=== PATIENT | female | born 1985 | race African-American/Black ===

== ENCOUNTER 2017-01-21 21:27 | Emergency (ER) | payer MEDICAID | END 2017-01-21 22:12 | disposition left against medical advice (07) | LOC: D.ER 21:27 | DX: Z02.9 Encounter for administrative examinations, unspecified (principal) ==

== ENCOUNTER 2017-01-21 22:27 | Emergency (ER) | payer MEDICAID ==
[2017-01-21 23:02] LABS: HCG URINE NEGATIVE (NEGATIVE)
== END 2017-01-22 00:47 | disposition home or self-care (01) ==
LOC: D.ER 22:27
PROVIDERS: Emergency Medicine
DX: N61.0 Mastitis without abscess (principal); E03.9 Hypothyroidism, unspecified; F17.200 Nicotine dependence, unspecified, uncomplicated

== ENCOUNTER 2018-10-12 14:55 | Inpatient (IN) | payer MEDICAID ==
[~2018-10-12] VITALS: Ht 165.1 cm; Wt 98.4 kg
[2018-10-12] MEDS ORDERED: ZOVIRAX200 MG PO (15:03)
[2018-10-12 15:24] LABS: BASOPHILS 0.2 % (0-2); EOSINOPHILS 6.8 % (0-7); HEMATOCRIT 33.6 % (36.0-48.0); HEMOGLOBIN 11.6 g/dL (12-16); IMMATURE GRANULOCYTES 0.2 % (0-5); LYMPHOCYTES 32.8 % (15-50); MCHC 34.5 g/dL (31.0-37.0); MCV 95.5 fL (80.0-100.0); MEAN PLATELET VOLUME 9.5 fL (7.4-10.4); MONOCYTES 6.3 % (2-11); NEUTROPHILS 53.7 % (40-80); PLATELET COUNT 206 10x3/uL (130-400); RBC 3.52 10x6/uL (4.00-5.40); RDW 12.6 % (11.5-14.5); WBC 5.1 10x3/uL (4.8-10.8)
[2018-10-12 15:48] LABS: ALBUMIN 3.5 g/dL (3.4-5.0); ALKALINE PHOSPHATASE 56 U/L (46-116); ALT (SGPT) 26 U/L (10-68); BILIRUBIN - TOTAL 0.28 mg/dL (0.2-1.3); CALC OSMOLALITY 270 mosm/kg (275-300); CALCIUM 8.4 mg/dL (8.5-10.1); CARBON DIOXIDE 24.9 mmol/L (21.0-32.0); CHLORIDE - SERUM 101 mmol/L (98-107); CREATININE - SERUM 0.8 mg/dL (0.6-1.3); GLUCOSE 75 mg/dL (74-106); POTASSIUM - SERUM 3.8 mmol/L (3.5-5.1); PROTEIN - SERUM 7.9 g/dL (6.4-8.2); SODIUM 136 mmol/L (136-145); UREA NITROGEN 12 mg/dL (7-18); eGFR NON AFRICAN AMERICAN 87 mL/min (90-120)
[2018-10-12 15:57] LABS: HCG SERUM POSITIVE (NEGATIVE)
--- NOTE | 2018-10-12 16:14 | NUR ---
RODRIGO FLORIAN FOR PELVIC. DR. FLORIAN PLACED CYTOTEC 200MG TABLETS X 4 IN PT CERVIX. PT TOLERATED WELL.
--- NOTE | 2018-10-12 17:00 | NUR ---
RECEIVED BY WHEELCHAIR FROM ER, PT IS ALERT AND ORIENT. SHE MOVES FREELY WITHOUT COMPLAINT OF NEED OF ASSISTANCE. RATES PAIN AT 3/10 AND STATES SHE IS JUST HAVING SOME CRAMPS. ASKING IF FOR SOMETHING TO EAT AND DRINK UNDERSTANDS THAT DR VELASQUEZ WOULD BE CONTACTED FOR ORDERS.
--- NOTE | 2018-10-12 17:22 | NUR ---
REPORT GIVEN TO DR VELASQUEZ OF THAT PT WAS ASKING TO EAT. ORDERS RECEIVED FOR REGULAR DIET UNTIL 399 THEN MAKE NPO.
[2018-10-12 17:42] LABS: APPEARANCE CLEAR (CLEAR); BILIRUBIN NEGATIVE (NEGATIVE); COLOR YELLOW (YELLOW); GLUCOSE NEGATIVE (NEGATIVE); KETONE MODERATE mg/dL (NEGATIVE); NITRITE NEGATIVE (NEGATIVE); PROTEIN NEGATIVE (NEGATIVE); UROBILINOGEN NORMAL (NORMAL)
[2018-10-12 17:50] LABS: RED CELLS - URINE OCC /hpf (0-5); WHITE CELLS - URINE OCC /hpf (0-5)
[2018-10-12] MEDS ORDERED: CYTOTEC200 MCG (19:43)
[2018-10-12] MEDS ORDERED: CLEOCIN HCL150 MG (19:44)
[2018-10-12] MEDS ORDERED: PREDNISONE5 MG (19:44)
[2018-10-12] MEDS ORDERED: IBUPROFEN800 MG (19:44)
[2018-10-12] MEDS ORDERED: ZOVIRAX400 MG (19:44)
[2018-10-12 19:45] VITALS: BP 121/71; Ht 165.1 cm; Wt 98.4 kg
--- NOTE | 2018-10-13 03:26 | NUR ---
PATIENT RESTING QUIETLY WITH EYES CLOSED, NO DISTRESS NOTED AT THIS TIME. WILL CONTINUE TO MONITOR
--- NOTE | 2018-10-13 06:00 | NUR ---
TO PT'S ROOM, PT REQUESTS TO GET UP TO THE BATHROOM, ASSISTED UP TO BR, GAIT SLOW AND STEADY. PT HAS PERITOWEL IN PLACE, WITH SMALL AMOUNT OF BRIGHT RED BLEEDING ON TOWEL. PT VOIDS UNMEASURED AMOUNT, PER SELF, WITHOUT DIFFICULTY. PERICARE DONE PER SELF. PERITOWELS REPLACED. PT BACK TO BED, AND WISHES TO TRY AND GO BACK TO SLEEP. SEE [facility] ADM BY THIS RN. PT REMINDED OF NPO STATUS. PT AGREES. SR UP X2, CALL LIGHT AND PHONE WITHIN REACH. SIG OTHER ASLEEP ON SOFA, SNORING LOUDLY.
[2018-10-13 06:15] VITALS: BP 116/71
--- NOTE | 2018-10-13 06:16 | NUR ---
UPON CYTOTEC PLACEMENT, SCANT TO SMALL AMOUNT OF BLEEDING NOTED ON STERILE EXAM GLOVE. NO CLOTS NOTED. NEW PERITOWEL PLACED.
--- NOTE | 2018-10-13 07:30 | NUR ---
ROOM CHECK, PT IS SNORING SOFTLY, RESTING ON HER BACK. PT NOT DISTURBED AT THIS TIME. SRUP X2, CALL LIGHT AND PHONE WITHIN REACH.
--- NOTE | 2018-10-13 09:00 | NUR ---
PT CALLS NURSE TO ROOM. PT REQUESTS SOMETHING FOR PAIN, STATES "MY LOWER BACK FEELS LIKE IT HAS SOMETHING PULLING ON IT". INSPECTOR FIBROUS WALLBOARD BUTTON NOTED TO HAVE FALLEN OUTSIDE OF SR. INSPECTOR FIBROUS WALLBOARD BUTTON PROVIDED TO PT, BUTTON PUSHED FOR PT. WARM BLANKET PROVIDED TO BACK FOR COMFORT. SRUP X2, CALL LIGHT AND PHONE WITHIN REACH.
--- NOTE | 2018-10-13 15:25 | NUR ---
TELEPHONE CALL TO DR. VELASQUEZ, PT REQUESTS TO EAT SOMETHING, SHE HAS NOT EATEN SINCE YESTERDAY. DR. VELASQUEZ STATES SHE WILL COME BY AND SEE PT AND SPEAK WITH HER. ALSO WANTS TO CONTINUE 0.9 % NS AT 125 ML/HR IV.
--- NOTE | 2018-10-13 15:25 | NUR ---
DR. VELASQUEZ ALSO STATES TO GO AHEAD AND GIVE CYTOTEC 800 MCG VG NOW.
--- NOTE | 2018-10-13 18:12 | NUR ---
NEW ORDER NOTED, PHARMACY CALLED TO BRING MEDS
--- NOTE | 2018-10-13 18:56 | NUR ---
DR VELASQUEZ CALLED AT THIS TIME,REPORTED THAT RESULTS FROM U/S ARE IN PACS. DR VELASQUEZ REQUESTS TO TALK TO THE PATIENT. PHONE CALL TRANSFERRED TO PT.
--- NOTE | 2018-10-13 19:01 | NUR ---
PHARMACY CALLED AGAIN FOR MEDICATIONS
--- NOTE | 2018-10-13 19:07 | NUR ---
DR VELASQUEZ CALLED BACK TO LET HER KNOW THAT THE PT STATES THAT SHE IS WANTING TO EAT OR SMOKE OR SOMETHING. PHONE CALL SENT TO THE ROOM AGAIN
--- NOTE | 2018-10-13 19:18 | NUR ---
PT GIVEN A SANDWICH TRAY, ICE WATER, SPRITE,JELLO AND PUDDING. DISCUSSED PLAN FOR DISCHARGE AND PT STATES THAT HER DOESNT GET OFF UNTIL 10 AND WONT BE HERE UNTIL 11 AND WILL BE TIRED. REQUESTING THAT WE CALL THE [employer]LECT[employer] TO SEE IF THERE IS A PLACE THEY CAN SLEEP TONIGHT.
--- NOTE | 2018-10-13 19:25 | NUR ---
NURSE CASE MANAGER CALLED AT THIS TIME PER PT REQUEST. STATES THAT WE CAN SEND HER HOME IN A CAB IF DESIRED. WILL TALK TO PT
[2018-10-13] MEDS ORDERED: VIBRAMYCIN 100100 MG PO (19:28)
--- NOTE | 2018-10-13 19:49 | NUR ---
PATIENT IV D/C'D WITHOUT INCIDENT. PRESSURE AND BANDAID APPLIED. DISCHARGE INSTRUCTIONS REVIEWED, SIGNED AND COPY PROVIDED. ALL QUESTIONS ANSWERED. PATIENTS IS ON HIS WAY TO TAKE HER HOME. PT GATHERING UP ALL HER BELONGINGS AND WILL WAIT IN THE WAITING ROOM.
== END 2018-10-13 19:35 | disposition home or self-care (01) | DRG 779 ==
LOC: D.ER 14:55 → D.LD 16:47
PROVIDERS: Family Medicine; ADMIT Obstetrics & Gynecology; ATTEND Obstetrics & Gynecology
PROC: 10D17Z9 Manual Extraction of Products of Conception, Retained, Via Natural or Artificial Opening (ICD-10-PCS; principal; 2018-10-12)
PROC: 3E0P7VZ Introduction of Hormone into Female Reproductive, Via Natural or Artificial Opening (ICD-10-PCS; 2018-10-12)
PROC: 0U7C7ZZ Dilation of Cervix, Via Natural or Artificial Opening (ICD-10-PCS; 2018-10-12)
DX: O02.1 Missed abortion (principal); Z3A.01 Less than 8 weeks gestation of pregnancy